=== PATIENT | male | born 1995 | race Caucasian/White ===

== ENCOUNTER 2020-09-26 12:36 | Emergency (ER) | payer OTHER ==
[2020-09-26 12:50] VITALS: BP 134/89
[2020-09-26 13:07] LABS: BILIRUBIN,URINE NEGATIVE (NEGATIVE); GLUCOSE, URINE (UA) NEGATIVE (NEGATIVE); KETONES,URINE (UA) NEGATIVE (NEGATIVE); LEUKOCYTE ESTERASE, URINE NEGATIVE (NEGATIVE); NITRITE,URINE NEGATIVE (NEGATIVE); OCCULT BLOOD,URINE NEGATIVE (NEGATIVE); PH,URINE 5.5 PH (5.0-7.5); PROTEIN,URINE NEGATIVE (NEGATIVE); UROBILINOGEN,URINE 0.2 (NORMAL) E.U./dL (NORMAL)
[2020-09-26 13:10] LABS: CLARITY,URINE CLEAR (CLEAR)
--- NOTE | 2020-09-26 14:26 | ED Physician Documentation ---
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 No discharge. Review of Systems Constitutional: denies: Fever, Chills Throat: reports: Reviewed and negative Cardiac: reports: Reviewed and negative Respiratory: reports: Reviewed and negative PD PAST MEDICAL HISTORY - Present Medications Home Medications: Ambulatory Orders Medication Instructions Recorded Confirmed Acyclovir 800 mg PO 5XD #50 tablet 09/26/20 - Allergies Allergies/Adverse Reactions: Allergies Allergy/AdvReac Type Severity Reaction Status Date / Time No Known Drug Allergies Allergy Verified 09/26/20 12:45 PD ED PE NORMAL - Vitals Vital signs reviewed: Yes - General General: Alert and oriented X 3, No acute distress - Male Male : Other (Vesicular rash on the top and side of the penis proximally consistent with type II herpes.) - Neuro Neuro: Alert and oriented X 3, Normal speech Results - Vitals Vitals: Vital Signs - 24 hr 09/26/20 12:45 Temperature 36.2 C L Heart Rate 70 Respiratory 16 Rate Blood Pressure 134/89 H O2 Saturation 99 Oxygen O2 Source Room air - Labs Labs: Laboratory Tests 09/26/20 12:55 Urine Color YELLOW Urine Clarity CLEAR Urine pH 5.5 Ur Specific Potter 1.025 Urine Protein NEGATIVE Urine Glucose (UA) NEGATIVE Urine Ketones NEGATIVE Urine Occult Blood NEGATIVE Urine Nitrite NEGATIVE Urine Bilirubin NEGATIVE Urine Urobilinogen 0.2 (NORMAL) Ur Leukocyte Esterase NEGATIVE Ur Microscopic Review NOT INDICATED Urine Culture Comments NOT INDICATED Departure - Departure Disposition: 01 Home, Self Care Clinical Impression: Herpes 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 I have done a swab of the area to do a PCR test and this should be available online in a few days. [place] You have [place] STD and herpes tests pending. The results should be done in about 4- 5 days. The fastest way to get a result for confirmation though is to go to the hospital website at [email or web address], click on the my [facility] tab and sign up for the patient portal.
[2020-09-26 20:42] LABS: CHLAMYDIA TRACHOMATIS DNA NEGATIVE (NEGATIVE); NEISSERIA GONORRHOEAE DNA NEGATIVE (NEGATIVE)
== END 2020-09-26 14:52 | disposition home or self-care (01) ==
LOC: ED 12:36
DX: A60.01 Herpesviral infection of penis (principal)
CPT/HCPCS: 81001; 81003; 86780; 87086; 87491; 87529; 87591; 87661; 99283